=== PATIENT | female | born 1985 | race Caucasian/White ===

== ENCOUNTER 2022-02-20 22:22 | Inpatient (IN) | payer OTHER ==
[~2022-02-20] VITALS: Ht 188 cm; Wt 95.1 kg
[2022-02-20 22:59] LABS: BASO % 0.3 % (0.0-2.0); EOS # 0.1 K/mm3 (0.0-0.7); EOS % 0.4 % (0.0-4.0); GRAN # 8.7 K/mm3 (1.4-6.5); GRAN % 73.4 % (42.2-75.2); HEMATOCRIT 38.6 % (37.0-47.0); HEMOGLOBIN 13.3 g/dl (12.5-16.0); MEAN CELL VOLUME 88 fl (80.0-100.0); MEAN CORPUSCULAR HEMOGLOBIN 30 pg (27-31); MEAN CORPUSCULAR HGB CONC 35 g/dl (33.0-37.0); MEAN PLATELET VOLUME 11.2 fl (7.4-10.4); MONO % 8.2 % (1.7-9.3); PLATELET COUNT 167 K/mm3 (130-400); RED BLOOD COUNT 4.39 M/mm3 (4.10-5.30); REDCELL DISTRIBUTION WIDTH-CV 13.6 % (11.5-14.5)
[2022-02-20 23:00] VITALS: BP 114/67; PULSE 104; TEMP 97.7
[2022-02-20 23:30] VITALS: BP 135/74; PULSE 75
--- NOTE | 2022-02-20 23:30 | NUR ---
2224- PT TO UNIT AMBULATORY WITH COMPLAINTS OF CONTRACTIONS THAT INTENSIFIED AT 1900 THIS EVENING. PT ORIENTED TO ROOM, CHANGED INTO OWN GOWN, EFM X2 APPLIED, VS OBTAINED, SVE OF /-2, INTACT. WILL NOTIFY PLANT CYTOLOGIST PHYSICIAN OF ARRIVAL. 2241- DR. MARRERO NOTIFIED OF ARRIVAL, SEE PHYSICIAN NOTIFICATION. PT STANDING AT BEDSIDE, BREATHING THROUGH CONTRACTIONS WELL. 2254- DR. MARRERO IN ROOM TO EVALUATE PT. DR. MARRERO DISCUSSES AROM WITH PT, PT REQUESTS TO HAVE SVE PERFORMED BEFORE CONSENTING TO AROM. SVE UNCHANGED FROM ADMIT. PT REQUESTS TO WAIT FOR AROM. 2258- PT OPTS TO HAVE AROM PERFORMED. AROM PERFORMED BY DR. MARRERO, CLEAR FLUID, SVE OF /0 FOLLOWING AROM. PT STANDING AT BEDSIDE. 2308- DR. MARRERO IN ROOM TO ASSESS PT. PT DENIES FEELING THE URGE TO PUSH OR DESIRE FOR CERVICAL CHECK AT THIS TIME. CONTINUES TO STAND AT BEDSIDE. DR. MARRERO OUT OF ROOM. 2311- CONTRACTIONS INTENSIFY, PT STATES, "IT FEELS LIKE SOMETHING IS COMING OUT OF MY BUTT." PT ASSISTED BACK INTO BED, DR. MARRERO IN ROOM FOR DELIVERY. 2315- UNABLE TO BREAK DOWN BED PRIOR TO DELIVERY. SPONTANEOUS VAGINAL DELIVERY OF VIABLE BABY BOY. BABY TO MOTHER'S ABDOMEN, CORD CLAMPED BY DR. MARRERO, CUT BY FOB. BABY CARES ASSUMED BY Kelechi VILCHIS RN. 2318- SPONTANEOUS DELIVERY OF INTACT PLACENTA. 2320- XYLOCAINE 2% GIVEN BY DR. 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 2321- 10 UNITS IM PITOCIN GIVEN IN LEFT THIGH, IV PULLED BY MISTAKE DURING REPOSITIONING FOR DELIVERY. 2330- DR. MARRERO COMPLETES REPAIR. RECOVERY STARTED.
[2022-02-20 23:45] VITALS: BP 115/70; PULSE 85
[2022-02-21] VITALS (9 sets, daily range): BP systolic 108–126; BP diastolic 56–75; PULSE 65–102; TEMP 97.7–98
--- NOTE | 2022-02-21 09:48 | NUR ---
Initial visit; Parents thanked Developmental Specialist for offering congratulations and God's blessings for the of their son. Developmental Specialist thanked family for choosing [facility].
[2022-02-22] VITALS: BP 110/61; PULSE 78; TEMP 98.1
[2022-02-22 05:20] VITALS: BP 102/57; PULSE 96; TEMP 98
[2022-02-22 08:15] VITALS: BP 115/66; PULSE 92; TEMP 98.2
--- NOTE | 2022-02-22 14:37 | NUR ---
1355DISCHARGE INSTRUCTIONS REVIEWED WITH PATIENT. PATIENT VERBALIZED UNDERSTANDING. WILL NOTIFY NURSING STAFF WHEN READY TO LEAVE. 1430ALL PERSONAL BELONGINGS GATHERE FROM PATIENT ROOM. PATIENT LEFT AMBULATORY AND IN NO APPARENT DISTRESS. PATIENT ACCOMPANIED BY SPOUSE AND Giuliano MARES RN.
== END 2022-02-22 14:30 | disposition home or self-care (01) | DRG 807 ==
LOC: LDRO 22:22 → OB 22:49 → LDR 22:49 → OB 02-21 01:45
PROVIDERS: ADMIT Obstetrics & Gynecology
PROC: 10E0XZZ Delivery of Products of Conception, External Approach (ICD-10-PCS; principal; 2022-02-20)
PROC: 0KQM0ZZ Repair Perineum Muscle, Open Approach (ICD-10-PCS; 2022-02-20)
DX: O70.1 Second degree perineal laceration during delivery (principal); Z37.0 Single live birth; Z3A.39 39 weeks gestation of pregnancy
CPT/HCPCS: J2590

== ENCOUNTER 2024-01-26 13:00 | Inpatient (IN) | payer BC | END 2024-01-28 14:15 | disposition home or self-care (01) | DRG 807 | LOC: LDRO 13:00 → OB 13:01 | PROVIDERS: ADMIT Obstetrics & Gynecology | PROC: 10E0XZZ Delivery of Products of Conception, External Approach (ICD-10-PCS; principal; 2024-01-26) | PROC: 0KQM0ZZ Repair Perineum Muscle, Open Approach (ICD-10-PCS; 2024-01-26) | DX: O69.2XX0 Labor and delivery complicated by other cord entanglement, with compression, not applicable or unspecified (principal); Z37.0 Single live birth; Z3A.38 38 weeks gestation of pregnancy; O70.1 Second degree perineal laceration during delivery ==